=== PATIENT | female | born 2000 | race Two or more races ===

== ENCOUNTER → 2022-01-15 | Outpatient (REF) | LOC: M EMP 13:55 | PROVIDERS: ATTEND Family Medicine | DX: Z20.822 Contact with and (suspected) exposure to COVID-19 (principal) ==

== ENCOUNTER → 2022-01-22 | Outpatient (REF) | LOC: M EMP 10:56 | PROVIDERS: ATTEND Family Medicine | DX: Z11.52 Encounter for screening for COVID-19 (principal) ==

== ENCOUNTER → 2022-04-09 | Outpatient (REF) ==
[2022-04-09 14:21] LABS: RSV AMPLIFICATION NEGATIVE (NEGATIVE)
== END ==
LOC: M LABSMTC 10:47
PROVIDERS: ATTEND Family Medicine
DX: Z20.822 Contact with and (suspected) exposure to COVID-19 (principal)

== ENCOUNTER → 2024-05-27 | Outpatient (REF) | payer OTHER ==
[2024-05-27 22:14] LABS: APPEARANCE, URINE HAZY (CLEAR); BACTERIA, URINE AUTO 1+ (NEGATIVE); BILIRUBIN, URINE AUTO NEGATIVE (NEGATIVE); BLOOD, URINE BLOOD 3+ (NEGATIVE); COLOR, URINE YELLOW (YELLOW); GLUCOSE, URINE (UA) AUTO NEGATIVE (NEGATIVE); KETONE, URINE AUTO NEGATIVE (NEGATIVE); LEUKOCYTE ESTERASE, URINE AUTO 3+ (NEGATIVE); MUCUS, URINE SMALL (NEGATIVE); NITRITE, URINE AUTO NEGATIVE (NEGATIVE); PROTEIN, URINE AUTO 2+ mg/dL (NEGATIVE); RBC, URINE AUTO TNTC /HPF (0-3); SQUAMOUS EPITHELIAL CELL UR AU 1 /HPF (0-6); UROBILINOGEN, URINE AUTO 0.2 mg/dL (0.0-2.0); WBC, URINE AUTO 110 /HPF (0-3)
[2024-05-27 22:41] LABS: Trichomonas vaginalis (AMP) NOT DETECTED (NEGATIVE)
[2024-05-27 23:05] LABS: GC DNA AMPLIFICATION NEGATIVE (NEGATIVE)
== END ==
LOC: M LAB REF 21:10
PROVIDERS: ATTEND Physician Assistant
DX: N39.0 Urinary tract infection, site not specified (principal); Z11.3 Encounter for screening for infections with a predominantly sexual mode of transmission

== ENCOUNTER → 2024-08-18 | Outpatient (CLI) | payer OTHER | LOC: M PLALAB 14:29 → MERGE 14:29 | PROVIDERS: ATTEND Nurse Practitioner Family | DX: Z34.80 Encounter for supervision of other normal pregnancy, unspecified trimester (principal) ==

== ENCOUNTER → 2024-09-17 | Outpatient (CLI) | payer OTHER | LOC: M RAD 10:01 | PROVIDERS: ATTEND Nurse Practitioner Family | DX: Z34.80 Encounter for supervision of other normal pregnancy, unspecified trimester (principal); Z3A.18 18 weeks gestation of pregnancy ==

== ENCOUNTER → 2024-11-19 | Outpatient (CLI) | payer OTHER ==
[2024-11-19 20:06] LABS: PLATELET COUNT, AUTOMATED 290 10^3/uL (150-450)
[2024-11-19 20:43] LABS: GLUCOSE CHALLENGE TEST 1 HOUR 116 MG/DL (LESS THAN 140)
[2024-11-19 21:13] LABS: HIV 1&2 SCREEN NEGATIVE (NEGATIVE)
[2024-11-19 21:21] LABS: HEPATITIS C VIRUS ABY INDEX 0.04 INDEX (<0.8)
[2024-11-19 22:37] LABS: Trichomonas vaginalis (AMP) NOT DETECTED (NEGATIVE)
[2024-11-19 23:01] LABS: GC DNA AMPLIFICATION NEGATIVE (NEGATIVE)
== END ==
LOC: M LAB 15:24
PROVIDERS: ATTEND Obstetrics & Gynecology
DX: Z34.80 Encounter for supervision of other normal pregnancy, unspecified trimester (principal)

== ENCOUNTER 2024-12-08 08:38 | Outpatient (CLI) | payer OTHER ==
[~2024-12-08] VITALS: Ht 160 cm; Wt 62.0 kg
[~2024-12-08 08:38] MED LIST: ALBUTEROL SULFATE 2.5 MG/0.5 ML INH CONCENTRATE NEB SOLN INH PRN; EPINEPHrine INJ 1 MG/ML 1ML AMP IM PRN; diphenhydrAMINE 50 MG/ML VIAL IV PRN
[2024-12-08 09:00] VITALS: BP 114/57; O2SAT 97
[2024-12-08] MEDS: IRON SUCROSE 500 MG in NS 250 ML OVER 4 HRS IV ONE (09:36)
[2024-12-08 11:02] VITALS: BP 131/67; O2SAT 99
[2024-12-08 12:00] VITALS: BP 135/86; O2SAT 99
[2024-12-08 13:50] VITALS: BP 132/72; O2SAT 99
[2024-12-08] MEDS ORDERED: PEPC1TAB5 PO (21:29)
[2024-12-08] MEDS ORDERED: MULTTAB20 PO (21:29)
[2024-12-08] MEDS ORDERED: CETI10TA4 PO (21:29)
[2024-12-08] MEDS ORDERED: CEPH500C PO (21:29)
[2024-12-08] MEDS ORDERED: PRED20TA PO (21:29)
== END 2024-12-08 14:05 | disposition home or self-care (01) ==
LOC: M INFU 08:38
PROVIDERS: ATTEND Obstetrics & Gynecology
DX: O99.019 Anemia complicating pregnancy, unspecified trimester (principal); Z3A.00 Weeks of gestation of pregnancy not specified

== ENCOUNTER 2024-12-08 15:07 | Emergency (ER) | payer OTHER ==
[~2024-12-08] VITALS: Ht 160 cm; Wt 61.4 kg
[2024-12-08 16:08] LABS: BASO # 0.0 10^3/uL (0.0-0.2); BASO % 0.1 % (0.0-1.0); EOS # 0.0 10^3/uL (0.0-0.5); EOS % 0.2 % (0.0-3.0); LYMPH # 1.1 10^3/uL (1.5-5.0); LYMPH % 8.6 % (24.0-44.0); MONO # 0.6 10^3/uL (0.0-0.8); MONO % 4.5 % (2.0-8.0); NEUTROPHILS # 11.2 10^3/uL (1.5-8.5); NEUTROPHILS % 85.7 % (36.0-66.0); PLATELET COUNT, AUTOMATED 287 10^3/uL (150-450)
[2024-12-08 16:30] LABS: CALCIUM LEVEL 8.4 MG/DL (8.5-10.1); CARBON DIOXIDE LEVEL 23 MMOL/L (20-31); CHLORIDE LEVEL 107 MMOL/L (98-107); CREATININE FOR GFR 0.58 MG/DL (0.55-1.30); GLOMERULAR FILTRATION RATE > 90.0 (>60); POTASSIUM SERUM 3.8 MMOL/L (3.5-5.1); SODIUM LEVEL 140 MMOL/L (136-145)
[2024-12-08] MEDS: ACETAMINOPHEN 500 MG TAB PO ONE (17:35)
[2024-12-08 17:59] LABS: KETONE, URINE AUTO RFX NEGATIVE (NEGATIVE); LEUKOCYTE ESTERASE UR AUTO RFX NEGATIVE (NEGATIVE); NITRITE, URINE AUTO RFX NEGATIVE (NEGATIVE); RBC, URINE AUTO RFX 68 /HPF (0-3); SQUAM EPITHELIAL CELL UR AURFX 3 /HPF (0-6)
[2024-12-08 18:00] LABS: WBC, URINE AUTO RFX 14 /HPF (0-3)
[2024-12-08] MEDS: CEPHALEXIN 500 MG CAP PO ONE (18:27)
[2024-12-08] MEDS: NS (Normal Saline) 0.9% 1,000 ML IV ONE ×2 (18:28→21:00)
[2024-12-08] MEDS ORDERED: PEPC1TAB5 PO (21:29)
[2024-12-08] MEDS ORDERED: PRED20TA PO (21:29)
[2024-12-08] MEDS ORDERED: MULTTAB20 PO (21:29)
[2024-12-08] MEDS ORDERED: CETI10TA4 PO (21:29)
[2024-12-08] MEDS ORDERED: CEPH500C PO (21:29)
[2024-12-08] MEDS: predniSONE 20 MG TAB PO ONE (21:32)
[2024-12-08 21:45] VITALS: BP 125/64; TEMP 98.6; O2SAT 100
== END 2024-12-08 22:02 | disposition home or self-care (01) ==
LOC: M ED 15:07
DX: O9A.213 Injury, poisoning and certain other consequences of external causes complicating pregnancy, third trimester (principal); T80.51XA Anaphylactic reaction due to administration of blood and blood products, initial encounter; O99.013 Anemia complicating pregnancy, third trimester; D64.9 Anemia, unspecified; Z3A.30 30 weeks gestation of pregnancy
CPT/HCPCS: 80048; 81001; 85025; 87040; 87086; 87486; 87581; 87633; 87798; 96360; 96361; 96365; 96366; 99285; J1756; J7512

== ENCOUNTER → 2025-01-05 | Outpatient (CLI) | payer OTHER ==
[~2025-01-05] MED LIST changes: -ALBUTEROL SULFATE 2.5 MG/0.5 ML INH CONCENTRATE NEB SOLN INH PRN; +CEPH500C PO; +CETI10TA4 PO; -EPINEPHrine INJ 1 MG/ML 1ML AMP IM PRN; +MULTTAB20 PO; +PEPC1TAB5 PO; +PRED20TA PO; -diphenhydrAMINE 50 MG/ML VIAL IV PRN
[2025-01-05 17:34] LABS: PLATELET COUNT, AUTOMATED 289 10^3/uL (150-450)
== END ==
LOC: M PLALAB 15:18
PROVIDERS: ATTEND Nurse Practitioner Family
DX: D50.9 Iron deficiency anemia, unspecified (principal)